=== PATIENT | male | born 1985 | race Caucasian/White ===

== ENCOUNTER 2020-10-13 02:03 | Emergency (ER) | payer BC, OTHER ==
[~2020-10-13] VITALS: Ht 182.9 cm; Wt 69.8 kg
[2020-10-13 02:32] VITALS: BP 129/79
[2020-10-13] MEDS ORDERED: BACTRIM DS TAB1 EACH PO (03:05)
== END 2020-10-13 03:00 | disposition home or self-care (01) ==
LOC: ER 02:03
DX: S30.860A Insect bite (nonvenomous) of lower back and pelvis, initial encounter (principal); L03.317 Cellulitis of buttock; Z88.0 Allergy status to penicillin; W57.XXXA Bitten or stung by nonvenomous insect and other nonvenomous arthropods, initial encounter; Y93.89 Activity, other specified; Y92.89 Other specified places as the place of occurrence of the external cause; Y99.8 Other external cause status

== ENCOUNTER 2021-06-20 14:03 | Emergency (ER) | payer BC, OTHER ==
[~2021-06-20] VITALS: Ht 182.9 cm; Wt 74.8 kg
[~2021-06-20 14:03] MED LIST: BACTRIM DS TAB1 EACH PO
[2021-06-20 14:10] VITALS: BP 122/86
[2021-06-20] MEDS ORDERED: MOBIC7.5 MG PO (15:49)
== END 2021-06-20 15:58 | disposition home or self-care (01) ==
LOC: ER 14:03
DX: M25.531 Pain in right wrist (principal); Z88.0 Allergy status to penicillin; W01.0XXA Fall on same level from slipping, tripping and stumbling without subsequent striking against object, initial encounter; Y93.89 Activity, other specified; Y92.89 Other specified places as the place of occurrence of the external cause; Y99.8 Other external cause status